=== PATIENT | female | born 1985 | race African-American/Black ===

== ENCOUNTER 2019-02-09 23:04 | Emergency (ER) | payer OTHER ==
[~2019-02-09] VITALS: Ht 170 cm; Wt 68.2 kg
[2019-02-09 23:09] VITALS: TEMP 98.7
[2019-02-09 23:44] LABS: BASO % 0.3 % (0.0-2.0); EOS # 0.1 (0.0-0.7); EOS % 1.6 % (0-4.0); GRAN # 3.8 (1.4-6.5); GRAN % 51.2 % (42.2-75.2); HEMATOCRIT 39.3 % (37.0-47.0); HEMOGLOBIN 12.7 g/dl (12.5-16.0); LYMPH # 2.9 (1.2-3.4); LYMPH % 39.5 % (20.0-51.0); MEAN CELL VOLUME 82 fl (80.0-100.0); MEAN CORPUSCULAR HEMOGLOBIN 27 pg (27.0-31.0); MEAN CORPUSCULAR HGB CONC 32 g/dl (33.0-37.0); MEAN PLATELET VOLUME 8.8 fl (7.4-10.4); MONO # 0.5 (0.1-0.6); MONO % 7.1 % (1.7-9.3); PLATELET COUNT 260 K/mm3 (130-400); REDCELL DISTRIBUTION WIDTH-CV 13.6 % (11.5-14.5)
[2019-02-09 23:56] LABS: COLLECTION METHOD CATHETER
[2019-02-10 00:04] LABS: MUCOUS Present /lpf; PH 6 (5-8); SQUAMOUS EPITHELIAL 0-2 /hpf; URINE APPEARANCE Clear; URINE BACTERIA None Seen /hpf; URINE BILIRUBIN Negative (NEGATIVE); URINE BLOOD 1+ (NEGATIVE); URINE COLOR Yellow; URINE GLUCOSE Negative (NEGATIVE); URINE KETONE Negative (NEGATIVE); URINE LEUKOCYTE ESTERASE Negative (NEGATIVE); URINE NITRATE Negative (NEGATIVE); URINE PROTEIN(semi-quant) Negative (NEGATIVE); URINE RBC 0-2 /hpf; URINE UROBILINOGEN Negative (NEGATIVE)
[2019-02-10 05:48] VITALS: BP 116/74; PULSE 76
== END 2019-02-10 05:48 | disposition home or self-care (01) ==
LOC: COL.ER 23:04
PROVIDERS: Emergency Medicine
DX: O03.9 Complete or unspecified spontaneous abortion without complication (principal)

== ENCOUNTER 2019-02-11 11:39 | Emergency (ER) | payer OTHER ==
[~2019-02-11] VITALS: Ht 117 cm; Wt 68.2 kg
[2019-02-11 13:17] LABS: BASO % 0.5 % (0.0-2.0); EOS # 0.1 (0.0-0.7); EOS % 1.1 % (0-4.0); GRAN # 3.4 (1.4-6.5); GRAN % 55.6 % (42.2-75.2); HEMOGLOBIN 13.2 g/dl (12.5-16.0); LYMPH # 2.2 (1.2-3.4); LYMPH % 36.3 % (20.0-51.0); MEAN CELL VOLUME 83 fl (80.0-100.0); MEAN CORPUSCULAR HEMOGLOBIN 26 pg (27.0-31.0); MEAN CORPUSCULAR HGB CONC 31 g/dl (33.0-37.0); MEAN PLATELET VOLUME 9.6 fl (7.4-10.4); MONO # 0.4 (0.1-0.6); MONO % 6.3 % (1.7-9.3); PLATELET COUNT 276 K/mm3 (130-400); RED BLOOD COUNT 5.05 M/mm3 (4.10-5.30); REDCELL DISTRIBUTION WIDTH-CV 13.8 % (11.5-14.5)
[2019-02-11 13:27] LABS: ALANINE AMINOTRANSFERASE < 6 U/L (9-52); ALBUMIN 4.9 gm/dL (3.5-5.0); ALKALINE PHOSPHATASE 36 U/L (50-136); ANION GAP 14 mmol/L (7-16); AST,SGOT 25 U/L (15-37); BILIRUBIN,TOTAL 0.4 mg/dL (0.0-1.0); BLOOD UREA NITROGEN 7 mg/dL (7-17); CALCIUM 9.9 mg/dL (8.4-10.2); CARBON DIOXIDE 25 mmol/L (22-30); CHLORIDE 103 mmol/L (98-107); CREATININE, serum 0.58 (0.52-1.25); GLUCOSE 81 mg/dL (74-106); POTASSIUM 3.9 mmol/L (3.4-5.0); SODIUM 143 mmol/L (137-145); TOTAL PROTEIN 9.1 gm/dL (6.4-8.2)
[2019-02-11 13:42] LABS: HCG,QUANTITATIVE 3059 mIU/mL (0-5)
[2019-02-11 15:49] VITALS: BP 132/82; PULSE 86; TEMP 98.2
== END 2019-02-11 15:55 | disposition home or self-care (01) ==
LOC: COL.ER 11:39
PROVIDERS: Nurse Practitioner
DX: O03.9 Complete or unspecified spontaneous abortion without complication (principal)

== ENCOUNTER 2020-04-10 16:00 | Outpatient (RCR) | payer OTHER ==
[2020-04-02 18:57] VITALS: BP 119/73; PULSE 91; TEMP 98.3
[2020-04-06 16:12] VITALS: BP 119/58; PULSE 101; TEMP 98.7
[~2020-04-10] VITALS: Ht 177.8 cm; Wt 83.6 kg
[~2020-04-10 16:00] MED LIST: PRENATE W/QUAT PO
[2020-04-10] MEDS ORDERED: FOLIC ACID0.4 MG PO (16:15)
[2020-04-10 16:48] VITALS: BP 117/75; PULSE 82; TEMP 98.5
== END 2020-04-10 17:33 | disposition home or self-care (01) ==
LOC: EUO 16:00
DX: O99.019 Anemia complicating pregnancy, unspecified trimester (principal); Z3A.00 Weeks of gestation of pregnancy not specified
CPT/HCPCS: J2916

== ENCOUNTER → 2020-04-30 | Outpatient (CLI) | payer OTHER ==
[~2020-04-30] MED LIST changes: +FOLIC ACID0.4 MG PO; +IBU600 MG PO; +PERCOCET 325 MG1 TA2 PO
== END | disposition still patient (30) ==
LOC: ZCOL.LAB 01:15
DX: Z20.828 Contact with and (suspected) exposure to other viral communicable diseases (principal)

== ENCOUNTER 2020-05-02 11:07 | Inpatient (IN) | payer OTHER ==
[2020-05-02] VITALS (17 sets, daily range): BP systolic 118–143; BP diastolic 64–90; PULSE 66–86; TEMP 98.2–98.4
[~2020-05-02] VITALS: Ht 167.6 cm; Wt 85.0 kg
[~2020-05-02 11:07] MED LIST changes: -IBU600 MG PO; -PERCOCET 325 MG1 TA2 PO
--- NOTE | 2020-05-02 19:15 | NUR ---
G3L0 at 39 weeks and 2 days arrives to unit ambulatory for scheduled induction of labor. Pt oriented to room, call light within reach, bed in low and locked position. Pt changed into gown. US and toco explained and applied. Pt reports feeling good movement, denies feeling contractions, denies vaginal bleeding, and denies LOF. Pt denies RUQ pain, changes in vision, or new headaches. Plan of care reviewed with patient and spouse, all questions answered.
--- NOTE | 2020-05-02 19:37 | NUR ---
18 g IV started in left forearm with 1 attempt. Admission labs obtained off IV start. Lactated Ringers infusing. Consents reviewed and signed with patient and spouse. All questions answered.
--- NOTE | 2020-05-02 20:05 | NUR ---
Category 1 FHR tracing obtained. Monitors removed for patient to use restroom. Once back to bed 50 mcg cytotec placed to posterior fornix of vagina. SVE closed/thick/high. Pt tolerated well. Pt positioned to wedge left and educated to try to remain semi flat and in bed for 2 hours. Call light within reach.
[2020-05-02 21:48] LABS: HEMOGLOBIN 10.7 g/dl (12.5-16.0); MEAN CELL VOLUME 82 fl (80.0-100.0); MEAN CORPUSCULAR HEMOGLOBIN 25 pg (27.0-31.0); MEAN CORPUSCULAR HGB CONC 31 g/dl (33.0-37.0); MEAN PLATELET VOLUME 11.7 fl (7.4-10.4); PLATELET COUNT 149 K/mm3 (130-400); RED BLOOD COUNT 4.22 M/mm3 (4.10-5.30); REDCELL DISTRIBUTION WIDTH-CV 21.1 % (11.5-14.5)
[2020-05-02 22:24] LABS: HEMATOCRIT 34.5 % (37.0-47.0)
[2020-05-02 22:32] LABS: EOSINOPHIL 1 % (0-4); LYMPHOCYTE 36 % (20.0-51.0); METAMYELOCYTE 1 % (0-0); MYELOCYTE 1 % (0-0); NEUTROPHILS 54 % (42.0-75.2); PLATELET ESTIMATE NORMAL (NORMAL)
[2020-05-02 22:33] LABS: ANISOCYTOSIS 2+
[2020-05-03] VITALS (87 sets, daily range): BP systolic 96–1145; BP diastolic 50–96; PULSE 55–100; TEMP 97.6–99.3
--- NOTE | 2020-05-03 00:05 | NUR ---
Category 1 FHR tracing obtained. Monitors off so patient can ambulate to restroom. SVE closed/thick/high. Pitocin started at 2 mu/min per telephone orders from Dr. Ponce, see physician notification.
--- NOTE | 2020-05-03 00:45 | NUR ---
Pt visibly uncomfortable with contractions. Pt wishing to bounce on birthing ball for comfort.
--- NOTE | 2020-05-03 01:20 | NUR ---
Pt sitting on birthing ball and leaning forwards onto edge of bed. Difficulty tracing FHR due to maternal positioning. RN at bedside adjusting monitors.
--- NOTE | 2020-05-03 02:20 | NUR ---
Monitors off, patient up to bathroom to void. Upon returning to bed, SVE fingertip and cervix feels lower than previous exam. Pitocin increased to 6 mu/min at this time. Plan of care reviewed with patient.
--- NOTE | 2020-05-03 06:20 | NUR ---
Bedside report received from Anthony Gates RN. Patient updated on plan of care and very uncomfortable with contractions at this time. SVE-2/80/-2 and patient denies any needs at this time. 0635: Patient requests epidural and Belen Gil TIME STUDY ANALYST notified. 0700: Patient off monitors and attempts to void. 0710: Patient sitting on edge of bed. Trace CNRA at bedside for placement of epidural. Difficulty tracing FHR due to maternal position. 0717: Single shot given and patient tolerates well. 0719: Test dose given and patient tolerates well. 0730: FHR baseline 120-125bpm and late decelerations decreasing to 95-100bpm noted. 0733: Patient turned right lateral and FHR decreasing to 75-100bpm for 3 minutes, patient left lateral, LR bolus infusing, FHR continues to trace in 70-90bpm, patient wedged left, SVE-4/90/-2. FHR returns to baseline of 125bpm. 0740: Ephedrine given IV, see EMAR 0743: FHR continues to trace late recurrent decelerations. Patient right lateral and Oxygen on via mask at 10ml/hr. 0755: FHR baseline 125bpm and recurrent late/variable decelerations noted. Patient left lateral. Dr. Ponce at bedside and updated on patient and reviewing FHR strip. Orders to half pitocin. 0800: Pitocin to 4 mU per physician orders. Patient and spouse updated. 0804: Ephedrine given per IV, see EMAR. 0825: Schmitt catheter placed and patient tolerates well. SVE-4/90/-2 and scalp stimulation noted. Patient right lateral.
--- NOTE | 2020-05-03 08:30 | NUR ---
Dr. Ponce at bedside to assess patient and FHR strip. Plan of care updated. Questions answered. Physician orders to continue to increase pitocin at this time.
--- NOTE | 2020-05-03 10:30 | NUR ---
SVE-5/90/-2 and good scalp stimulation noted. Patient sitting in suad position. Recurrent variables noted. 1100: FHR baseline 125bpm and subtle late decelerations noted. Patient repositioned left lateral and right leg resting in stirrup. 1140: Recurrent subtle late/variable deceleration noted and patient right lateral with peanut ball in place.
--- NOTE | 2020-05-03 15:40 | NUR ---
Recurrent subtle late decelerations noted. Patient repositioned. 1645: Dr. Ponce at bedside assessing patient and FHR strip. SVE per physician 10/100/+3 and orders to prepare for delivery. Pushing instructions gone over with patient and questions answered. 1756: Patient begins pushing with Dr. Ponce at this time. Recurrent variables noted. 1722: Spontaneous vaginal delivery of viable female-head followed by body. Infant bulb syringed and to patients abdomen. Cord clamped by physician and cut by FOB. Cord blood obtained. 1725: Spontaneous delivery of placenta and pitocin bolus started at 333mU per protocol. Fundal massage done/firm/bleeding WNL. Patient repositioned and ice pack to perineum. Plan of care discussed
[2020-05-04 01:10] VITALS: BP 119/51; PULSE 67; TEMP 97.5
[2020-05-04 04:59] VITALS: BP 106/53; PULSE 67; TEMP 97.9
[2020-05-04 06:40] LABS: HEMOGLOBIN 8.2 g/dl (12.5-16.0)
[2020-05-04] MEDS ORDERED: IBU600 MG PO (07:40)
[2020-05-04] MEDS ORDERED: PERCOCET 325 MG1 TA2 PO (07:40)
--- NOTE | 2020-05-04 09:23 | NUR ---
Inital visit; Patient thanked Pipe Wrapping Machine Operator for visiting and asked that Pipe Wrapping Machine Operator bless her baby girl. Pipe Wrapping Machine Operator offered prayer and Blessings for baby Akinbile.
[2020-05-04 11:33] VITALS: BP 119/62; PULSE 68; TEMP 98.2
[2020-05-04 16:30] VITALS: BP 110/58; PULSE 93; TEMP 98.1
--- NOTE | 2020-05-04 17:27 | NUR ---
LC visits with pt's mother re; sore nipples. Mother has bilateral wounds to the face of each nipple with the left worse than the right. Baby to breast so LC can evaluate latch. Mother advised on a minor shift in baby's angle to breast. Mother handles baby and breast well. Pain is similar to previous feedings. LC evaluate for tongue tie, notes a possible posterior restriction. Mother cannot verify if she has seen baby extend tongue beyond the lips. Advised her to monitor for that. Also discussed options for having the possible teather evaluated, as well as for her to contact her OB re: Triplett's Nipple Cream for wounds. Shells and shield provided with instructions for use. Questions invited and answered.
[2020-05-04 22:35] VITALS: BP 118/60; PULSE 85; TEMP 98
[2020-05-05 07:15] VITALS: BP 104/54; PULSE 80; TEMP 98
--- NOTE | 2020-05-05 14:00 | NUR ---
Discharge instructions given, pt verbalizes understanding. Bands matched and hugs tag removed. Pt taken to personal vehicle via wheelchair. Infant in carseat.
== END 2020-05-05 14:10 | disposition home or self-care (01) | DRG 807 ==
LOC: OB 11:07 → LDR 19:02 → OB 05-03 20:00
PROVIDERS: ADMIT Obstetrics & Gynecology
PROC: 10E0XZZ Delivery of Products of Conception, External Approach (ICD-10-PCS; principal; 2020-05-03)
PROC: 0KQM0ZZ Repair Perineum Muscle, Open Approach (ICD-10-PCS; 2020-05-03)
PROC: 3E0P7GC Introduction of Other Therapeutic Substance into Female Reproductive, Via Natural or Artificial Opening (ICD-10-PCS; 2020-05-03)
DX: O36.63X0 Maternal care for excessive fetal growth, third trimester, not applicable or unspecified (principal); Z37.0 Single live birth; O34.13 Maternal care for benign tumor of corpus uteri, third trimester; D25.9 Leiomyoma of uterus, unspecified; O34.40 Maternal care for other abnormalities of cervix, unspecified trimester; O99.02 Anemia complicating childbirth; D50.9 Iron deficiency anemia, unspecified; O99.62 Diseases of the digestive system complicating childbirth; K21.9 Gastro-esophageal reflux disease without esophagitis; O70.1 Second degree perineal laceration during delivery; Z3A.39 39 weeks gestation of pregnancy
CPT/HCPCS: J0595; J2590; J2795; J7120

== ENCOUNTER 2020-10-09 15:12 | Emergency (ER) | payer MEDICAID ==
[~2020-10-09] VITALS: Ht 162.6 cm; Wt 77.3 kg
[~2020-10-09 15:12] MED LIST changes: +IBU600 MG PO; +PERCOCET 325 MG1 TA2 PO
[2020-10-09 15:19] VITALS: BP 127/77; TEMP 97.8
[2020-10-09 16:20] VITALS: PULSE 78
== END 2020-10-09 16:20 | disposition home or self-care (01) ==
LOC: COL.ER 15:12
DX: M25.532 Pain in left wrist (principal); Z88.8 Allergy status to other drugs, medicaments and biological substances